=== PATIENT | female | born 2000 | race Caucasian/White ===

== ENCOUNTER 2024-05-08 16:47 | Emergency (ER) | payer MEDICAID ==
[~2024-05-08] VITALS: Ht 165.1 cm; Wt 64.4 kg
[2024-05-08] MEDS ORDERED: AMOX-580 PO (20:31)
[2024-05-08] MEDS: CefTRIAXone 1000mg IM Kit (w/lidocaine diluent) IM ONE (20:37)
[2024-05-08] MEDS: ketorolac trometh 30MG/ML vial 30 MG/ML VIAL IM ONE (20:37)
[2024-05-08 20:51] VITALS: BP 130/88; PULSE 99; RESP 20; TEMP 98.6; O2SAT 99
== END 2024-05-08 20:52 | disposition home or self-care (01) ==
LOC: ER 16:48
DX: L02.01 Cutaneous abscess of face (principal); J32.9 Chronic sinusitis, unspecified
CPT/HCPCS: 96372; 99284; J0696; J1885